=== PATIENT | male | born 1975 | race Caucasian/White ===

== ENCOUNTER → 2023-03-18 | Outpatient (CLI) | payer OTHER | LOC: RAD 14:07 | PROVIDERS: ATTEND Family Medicine | DX: M25.562 Pain in left knee (principal); S86.912D Strain of unspecified muscle(s) and tendon(s) at lower leg level, left leg, subsequent encounter; W19.XXXD Unspecified fall, subsequent encounter; Y99.0 Civilian activity done for income or pay ==